=== PATIENT | female | born 1950 | race Caucasian/White ===

== ENCOUNTER 2017-09-21 07:57 | Inpatient (IN) ==
[~2017-09-21 07:57] MED LIST: LIDOCAINE 1% (10mg/ml) 2mL INJ PF SDV ID ONE
[2017-09-21] MEDS ORDERED: TRANEXAMIC ACID 1,000 MG in NS 100 ML IV ONE (08:06)
[2017-09-21] MEDS ORDERED: LIDOCAINE 1% (10mg/ml) 2mL INJ PF SDV ID ONE (08:06)
[2017-09-21] MEDS ORDERED: DEXAMETHASONE 4 MG/ML INJECTION IVP ONE (08:06)
[2017-09-21] MEDS ORDERED: ACETAMINOPHEN 500 MG TABLET PO ONE (08:06)
[2017-09-21] MEDS ORDERED: ONDANSETRON 4 MG/2 ML INJECTION IVP ONE (08:06)
[2017-09-21] MEDS ORDERED: METOCLOPRAMIDE 10mg/2ml INJECTION IVP ONE (08:06)
[2017-09-21] MEDS ORDERED: MELOXICAM 15 MG TABLET PO ONE (08:06)
[2017-09-21] MEDS ORDERED: EPINEPHrine PF 0.25 MG, BUPIVACAINE 0.25% PF 30 ML, KETOROLAC INJ 60 MG in NS 30 ML OPSITE ONE (08:06)
[2017-09-21] MEDS ORDERED: SALINE FLUSH 10ml SYRINGE IV PRN (08:06)
[2017-09-21] MEDS ORDERED: FAMOTIDINE PB 20 MG/50 ML BAG IV ONE (08:06)
[2017-09-21 08:17] VITALS: BMI 20.2
[2017-09-21] MEDS: LR 1,000 ML IV SCH ×2 (09:00→10:10)
[2017-09-21] MEDS ORDERED: PROPOFOL 500 MG/50 ML VIAL ONE (09:03)
[2017-09-21] MEDS ORDERED: MIDAZOLAM 2mg/2ml INJECTION ONE (09:04)
[2017-09-21] MEDS: NOZIN NASAL SWAB NAS SCH ×5 (09:05→21:34)
[2017-09-21] MEDS ORDERED: VANCOMYCIN 1,000 MG INJECTION ONE (09:35)
[2017-09-21] MEDS ORDERED: VANCOMYCIN 1,000 MG INJECTION IAR ONE (09:56)
[2017-09-21] MEDS ORDERED: CEFAZOLIN 1 G INJECTION IVP ONE (10:00)
[2017-09-21] MEDS ORDERED: GLYCOPYRROLATE 0.4 MG/2 ML INJECTION ONE (10:18)
--- NOTE | 2017-09-21 10:53 | Anesthesia Preoperative Report ---
Anesthesia Preoperative Record - Date and Time Date: 09/21/17 Preoperative Diagnosis: total knee arthroplasty M17.11 Proposed Procedure: right TKA, robotic NPO Since Date: 09/20/17 NPO Since Time: 23:00 Allergies/Adverse Reactions: Allergies Allergy/AdvReac Type Severity Reaction Status Date / Time Sulfa (Sulfonamide Allergy Severe Nausea Verified 09/21/17 08:29 Antibiotics) Penicillins Allergy Mild Rash Verified 09/21/17 08:29 - Vital Signs Vital Signs: Temperature 97.7 F 09/21/17 08:16 Pulse Rate 65 09/21/17 08:42 Respiratory Rate 14 09/21/17 08:16 Blood Pressure 155/71 H 09/21/17 09:25 Pulse Oximetry 97 09/21/17 08:16 Height and Weight: Height 5 ft 5 in Weight 55.1 kg Body Mass Index 20.2 - Medications Inpatient Medications: Current Medications Acetaminophen (Tylenol) 1,000 mg PO PREOP ONE Stop: 09/21/17 08:07 Last Admin: 09/21/17 09:06 Dose: 1,000 mg Cefazolin Sodium (Kefzol) 1 g IVP PREOP ONE Stop: 09/21/17 10:01 Last Admin: 09/21/17 09:50 Dose: 1 g Dexamethasone (Decadron) 10 mg IVP PREOP ONE Stop: 09/21/17 08:07 Last Admin: 09/21/17 09:12 Dose: 10 mg Lactated Ringer's (Lactated Ringers) 1,000 mls @ 50 mls/hr IV .Q20H JB Last Admin: 09/21/17 10:10 Dose: 50 mls/hr Famotidine/Sodium Chloride (Pepcid Premix) 20 mg in 50 mls @ 100 mls/hr IV PREOP ONE Stop: 09/21/17 08:35 Last Infusion: 09/21/17 09:30 Dose: Infused Epinephrine HCl 0.25 mg/Bupivacaine HCl 30 ml/Ketorolac Tromethamine 60 mg/ Sodium Chloride 62.25 mls @ 1 mls/hr OPSITE INTRAOP ONE PRN Reason: Protocol Stop: 09/23/17 22:20 Last Admin: 09/21/17 10:44 Dose: 1 mls/hr Tranexamic Acid 1,000 mg/ (Sodium Chloride) 110 mls @ 660 mls/hr IV INTRAOP ONE Stop: 09/21/17 08:15 Last Infusion: 09/21/17 10:22 Dose: Infused Tranexamic Acid 1,000 mg/ (Sodium Chloride) 110 mls @ 660 mls/hr IV INTRAOP ONE Stop: 09/21/17 08:15 Isopropyl Alcohol (Nozin Nasal Swab) 1 each PARRISH Q1M JB Stop: 09/21/17 08:09 Last Admin: 09/21/17 09:17 Dose: 1 each Lidocaine HCl (Xylocaine-Mpf 1% Vial) 1 mg ID O ONE Stop: 09/21/17 08:07 Last Admin: 09/21/17 09:00 Dose: 1 mg Meloxicam (Mobic) 15 mg PO PREOP ONE Stop: 09/21/17 08:07 Last Admin: 09/21/17 09:06 Dose: 15 mg Metoclopramide HCl (Reglan) 10 mg IVP PREOP ONE Stop: 09/21/17 08:07 Ondansetron HCl (Zofran) 4 mg IVP PREOP ONE Stop: 09/21/17 08:07 Last Admin: 09/21/17 09:09 Dose: 4 mg Sodium Chloride (Iv Flush) 10 - 80 ml IV PRN PRN PRN Reason: Flushing Vancomycin HCl (Vancocin) 1,000 mg IAR O ONE Stop: 09/21/17 09:57 Home Medications: Home Medications Medication Instructions Recorded Confirmed Type Levothyroxine Sodium 88 mcg PO DAILY #0 05/22/13 09/21/17 History Amlodipine Besylate [Norvasc] 2.5 mg PO DAILY #0 tab 08/09/16 09/21/17 History ergocalciferol (vitamin D2) 50,000 50,000 unit PO DAILY #2 cap 09/18/17 Rx unit capsule Citalopram Hydrobromide [Celexa] 1 tab PO DAILY 09/19/17 09/21/17 History Estradiol [Estrace] 2 mg PO DAILY 09/19/17 09/21/17 History Hydrocodone/APAP 5/325 [[place] 1 tab PO Q4H PRN 09/19/17 09/21/17 History 5/325] Ibuprofen 200 - 400 mg PO Q4-6HR PRN 09/21/17 09/21/17 History Is Patient on Beta Hua?: No - Medical History Respiratory: DENIES: Sleep Apnea Cardiovascular: Reports: Hypertension Gastrointestional: Reports: Other (constipation; IBS) Neuro/Musculoskeletal: Reports: HX.MS.OSAR, Depression Renal/Endocrine: Reports: Thyroid Disease (h/o goiter) - Surgical History HEENT Surgeries: Reports: Oral Surgery (wisdom teeth removal) GI Surgery/Treatments: Reports: Appendectomy, Cholecystectomy, Hernia Repair ( as a baby), Colonoscopy, Other (laparotomy; lysis of adhesions) Musculoskeletal Surgery/Tx: Reports: Other (hammer toe surgery bilat) Reproductive Surgery/Treatment: Reports: Hysterectomy, Oophorectomy (RSO), Tubal Ligation, Other (breast lump removed as a teenager) Anesthesia Reactions: None Hx Family Anesthesia Reaction: No History of Motion Sickness: No - Social History Smoking Status: Former smoker Hx Chewing Tobacco Use: No Second Hand Exposure: Yes Substance Use Type: does not use Alcohol Intake: current Alcohol Intake Frequency: a few times a month - Pertinent Findings Laboratory: CBC and BMP 09/21/17 08:27 BMP 09/21/17 08:27 Sodium 142 Potassium 3.8 Chloride 103 Carbon Dioxide 31 H BUN 21.0 H Creatinine 0.8 Glucose 91 Calcium 9.1 EKG: Sinus Rhythm - Physical Exam Respiratory Exam: Present: lungs clear, bilateral breath sounds equal Cardiovascular Exam: Present: regular rate and rhythm - Airway Assessment Mallampati Score: II TMD: 3 Fingerbreadths Neck Extension: good Overall Assessment: no airway concerns - ASA ASA Score: 2 - Plan Anesthesia: General TIVA, Neuroaxial Regional/Trunk Block: Spinal - Discussion Discussion: Discussed risks/options/alternatives of anesthesia and questions answered. Patient consents. Nursing pain assessment noted. Present for Discussion: family member (daughter) Attestation Statement: Prior to the delivery of any anesthetic medication, I examined the patient, developed the plan, obtained the patient's consent and discussed the risk and benefits of the procedure with the patient/guardian. - Additional Information Seen by Anesthesia: Yes
--- NOTE | 2017-09-21 11:29 | Operative Note ---
- Procedure Preoperative Diagnosis: Left knee primary degenerative joint disease Postoperative Diagnosis: Same as preoperative diagnosis. Surgeon: Mone Gill MD Heavy Equipment Sales Associate: Luis Quinones Complications: None. Anesthesia: Spinal. Estimated Blood Loss: See Anesthesia Record. Fluids: Please see Anesthesia Record. Description of Procedure: Mrs. Dudley and her left knee were identified and marked in the preoperative holding area. She was brought back to the operating suite. Spinal anesthetic was administered and she was placed supine on the operating table. The left lower extremity was prepped and draped in my normal sterile fashion. Timeout was performed. The [email or web address] robotic arm was used during the surgery. She had a fixed valgus deformity. No flexion contracture. A standard anterior midline incision followed by medial parapatellar arthrotomy was performed. Anterior fat pad and meniscus were removed. The patella was everted and a patella osteotomy was performed leaving 12 mm of bone. As expected she had complete loss of cartilage in the lateral compartment. Tibial and femoral arrays and checkpoints were placed both within the original incision. The bone was then registered with the [email or web address] robot. Osteophytes were removed and gaps were captured both 90 and 0 degrees with correction. Given that she was lax throughout I obtained 17 mm gaps throughout using the [email or web address] software. The [email or web address] robotic arm was then used to assist with the bone cuts. Posterior osteophytes and remaining meniscus were removed. Trial components were placed. We used a 4 femur and a 3 tibia with a 9 mm spacer and a 29 patella. She was tight in flexion so I released the PCL which balanced out nicely. I then decided cut for the PS femur. We then trialed with 11 spacer. She tracked well and was well balanced throughout range of motion. The leg was exsanguinated and the tourniquet inflated to 250 mmHg. The tibia was stamped. The bone was prepared for cementing and components were cemented into place and allowed to cure in extension. The tourniquet was let down and hemostasis obtained with electrocautery. The knee was ranged one more time to ensure good stability, balance and patellar tracking. 1 g of vancomycin powder was then placed into the knee joint. The capsulotomy was then closed with #1 Vicryl. I then left my assistant inventory manager to close the subcutaneous tissue with 2-0 Vicryl. Running 4-0 Monocryl will be used in the subcuticular layer. Dermabond will be used on the skin followed by sterile dressing. After drapes are removed patient will be taken to recovery room under the care of anesthesia.
--- NOTE | 2017-09-21 12:25 | XRay Report ---
Indication: postoperative image PROCEDURE: XR knee RT 2V: Encounter: Initial Comparison: July 25, 2017 Findings: Postoperative changes of right total knee replacement are seen. There is expected postoperative subcutaneous gas. No evidence of hardware failure or acute fracture. No retained radiopaque surgical instruments or sponges. Overlying material causing artifact. Impression: New right total knee prosthesis without evidence of immediate complication. .
[2017-09-21] MEDS ORDERED: DiphenhydrAMINE 25 MG CAPSULE PO PRN (12:29)
[2017-09-21] MEDS ORDERED: DiphenhydrAMINE 50 MG/ML INJECTION IVP PRN (12:29)
[2017-09-21] MEDS ORDERED: NOZIN NASAL SWAB NAS ONE (12:29)
[2017-09-21] MEDS ORDERED: LORazepam 1 MG TABLET PO PRN ×2 (12:29→14:01)
[2017-09-21] MEDS ORDERED: ONDANSETRON 4 MG/2 ML INJECTION IVP PRN (12:29)
[2017-09-21] MEDS: NS 1,000 ML IV SCH (12:54)
[2017-09-21] MEDS: ACETAMINOPHEN 325 MG TABLET PO SCH ×3 (13:15→21:35)
--- NOTE | 2017-09-21 13:37 | Anesthesia Postoperative Note ---
- Date and Time Date: 09/21/17 Time: 12:00 - Status Patient Participated in Evaluation: Patient Participated in Person Vital Signs: Temperature 98.5 F 09/21/17 12:36 Pulse Rate 54 L 09/21/17 13:06 Respiratory Rate 20 09/21/17 13:06 Blood Pressure 175/74 H 09/21/17 13:06 Pulse Oximetry 100 09/21/17 13:06 Respiratory Function: Airway Patent Cardiovascular Function: Regular Pulse EKG: Sinus Rhythm Mental Status: Alert and Oriented Pain Intensity: 0 Hydration: IV Infusing Complications During Recover: None Apparent - Follow-Up Instructions Instructions: Per Surgeon
--- NOTE | 2017-09-21 13:37 | Anesthesia Procedure Note ---
Peripheral Nerve Blockade - Procedure Physician: Carlitos Gill MD Date: 09/21/17 Surgical Procedure: Right Total Knee Replacement Discussion: Discussed risks/options/alternatives of anesthesia and questions answered. Patient consents. Nursing pain assessment noted. Block Start: 11:56 Block Stop: 11:58 Blocked Employed: Adductor Canal Indication: Post-Operative Pain Approach: Right Side Confirmed Position: Supine Patient: Consent, Risks/Benefits Discussed, Informed, Post Block Act. Discussed IV Sedation: No Sedation: Awake Initial Vital Signs: Temperature 97.7 F 09/21/17 08:16 Temperature Source Oral 09/21/17 08:16 Pulse Rate 62 09/21/17 08:16 Respiratory Rate 14 09/21/17 08:16 Blood Pressure 172/74 H 09/21/17 08:16 Blood Pressure Mean 106 09/21/17 08:16 Blood Pressure Position Sitting 09/21/17 08:16 Pulse Oximetry 97 09/21/17 08:16 Oxygen Delivery Method 09/21/17 08:16 Post Vital Signs: Temperature 98.5 F 09/21/17 12:36 Pulse Rate 54 L 09/21/17 13:06 Respiratory Rate 20 09/21/17 13:06 Blood Pressure 175/74 H 09/21/17 13:06 Pulse Oximetry 100 09/21/17 13:06 Initial Pain Pain Score: 0 Post Block Pain Score: 0 Prep: Chlorhexadine/ETOH Ultrasound Used?: Yes - Nerve Simulator Paresthesia/Pain: None - Injectate Ropivacaine (%): 0.5 Ropivacaine (mL): 20 Was Epi 1:200,000 Used?: No Injection: Injection made incrementally with constant monitoring and aspiration every ml
[2017-09-21] MEDS ORDERED: LORazepam 1 MG TABLET PO ONE (14:02)
[2017-09-21] MEDS: IBUPROFEN 200 MG TABLET PO SCH ×2 (15:04→21:36)
[2017-09-21] MEDS: Oxycodone *IR* 5 MG TABLET PO PRN ×2 (17:05→22:11)
[2017-09-21] MEDS: CEFAZOLIN 1 G in NS 50 ML IV SCH (18:14)
[2017-09-21] MEDS ORDERED: SENNOSIDES 8.6 MG TABLET PO SCH (21:00)
[2017-09-21] MEDS: ASPIRIN *EC* 81 MG TABLET PO SCH (21:36)
[2017-09-21] MEDS: DOCUSATE SODIUM 100 MG CAPSULE PO SCH (21:36)
[2017-09-21] MEDS: CITALOPRAM 10 MG TABLET PO SCH (22:11)
[2017-09-22] MEDS: CEFAZOLIN 1 G in NS 50 ML IV SCH (02:38)
[2017-09-22] MEDS: Oxycodone *IR* 5 MG TABLET PO PRN ×2 (02:41→10:41)
[2017-09-22] MEDS: NS 1,000 ML IV SCH ×3 (02:57→17:32)
[2017-09-22] MEDS: IBUPROFEN 200 MG TABLET PO SCH ×3 (04:04→17:32)
[2017-09-22] MEDS ORDERED: LEVOTHYROXINE 88 MCG TABLET PO SCH (06:30)
[2017-09-22] MEDS: NOZIN NASAL SWAB NAS SCH ×2 (06:34→13:37)
--- NOTE | 2017-09-22 08:44 | Orthopedic Progress Note ---
Date: Date: 09/22/17 Time: 838 Subjective/Severity of Illness: Marquita is sitting up in the chair this morning dressed and putting on her makeup. States She did well overnight, and pain has been well controlled with Tylenol and Roxicodone. Has been up ambulating. Denies any chest pain, shortness of breathe, nausea. Orthopedic Exam Vital signs: Temperature 98.8 F 09/22/17 04:06 Pulse Rate 55 L 09/22/17 07:29 Respiratory Rate 16 09/22/17 07:29 Blood Pressure 149/67 H 09/22/17 07:29 Pulse Oximetry 100 09/22/17 07:29 - Constitutional General Appearance: Present: alert, orientated x3, no acute distress, well nourished - Respiratory Exam Present: non-labored - Cardiovascular Exam Present: pedal pulses intact - Extremities Exam Present: pulses intact. Absent: calf tenderness - Integumentary Exam Comments: Mepilex dressing c/d/i. Normal post-operative swelling noted. Full ROM of Right ankle. - Neurological Exam Present: intact to light touch, no deficits - Labs Result Diagrams: 09/22/17 04:01 09/22/17 04:01 Abnormal lab results 09/21/17 09/22/17 09/22/17 Range/Units 08:27 04:01 04:01 Hgb 11.3 L (12-16) GM/DL Hct 34.5 L (36-46) % Carbon Dioxide 31 H (22-30) MEQ/L BUN 21.0 H (7-17) MG/DL Glucose 139 H (65-110) MG/DL H & H 09/22/17 Range/Units 04:01 Hgb 11.3 L (12-16) GM/DL Hct 34.5 L (36-46) % Orthopedic Assessment and Plan (1) Primary osteoarthritis of right knee Status: Acute Assessment and Plan: Current anti-coagulation protocol with ASA 81mg BID and SCDs for VTE prophylaxis. PT/OT services to improve independent function. Discharge Planning per Case Management. - Anticoagulation Therapy Anticoagulation: ASA 81 mg PO BID x6 weeks Hospital Course Summary Disclaimer: The visit summary below is not to be considered part of the above Progress Note.
[2017-09-22] MEDS ORDERED: AMLODIPINE 2.5 MG TABLET PO SCH (09:00)
[2017-09-22] MEDS ORDERED: POLYETHYL GLYCOL 3350 17gm PACKET PO SCH (09:00)
[2017-09-22] MEDS: ACETAMINOPHEN 325 MG TABLET PO SCH ×2 (09:13→13:37)
[2017-09-22] MEDS: CITALOPRAM 10 MG TABLET PO SCH (09:14)
[2017-09-22] MEDS: ASPIRIN *EC* 81 MG TABLET PO SCH (09:14)
[2017-09-22] MEDS: DOCUSATE SODIUM 100 MG CAPSULE PO SCH (09:15)
[2017-09-22] MEDS ORDERED: SENNOSIDES 8.6 MG TABLET PO PRN (11:38)
--- NOTE | 2017-09-22 11:45 | Discharge Summary ---
Orthopedic Discharge Info Date of admission: 09/21/17 07:57 Anticipated date of discharge: 09/22/17 Primary care physician: Vinicio Holden MD Attending Physician: Carlitos Gill MD Consults: 09/21/17 08:06 Consult to Anesthesiology [CONS] Routine Reason For Exam: Preoperative Assessment 09/21/17 12:29 Case Management Consult [CONS] Routine Reason For Exam: Discharge Planning DME-Walker [CONS] Routine Height: 5 ft 5 in Weight: 55.1 kg Total Joint Outpatient Therapy [CONS] Routine Comment: Remove dressing in 2 weeks - Discharge Diagnosis (1) Primary osteoarthritis of right knee Status: Acute - Laboratory Result Diagrams: 09/22/17 04:01 09/22/17 04:01 Laboratory: Abnormal lab results 09/22/17 09/22/17 Range/Units 04:01 04:01 Hgb 11.3 L (12-16) GM/DL Hct 34.5 L (36-46) % Glucose 139 H (65-110) MG/DL H & H 09/22/17 Range/Units 04:01 Hgb 11.3 L (12-16) GM/DL Hct 34.5 L (36-46) % Orthopedic Discharge HPI - HPI Comments This patient was admitted for elective surgical tx of end stage degenerative joint disease that failed to respond to conservative treatment. Further details of this is found in the admission H&P. Orthopedic Hospital Course Hospital course: 09/22/17 11:43 After appropriate preoperative clearance and signing of operative consent, the patient was given IV antibiotics, according to orthopedic protocol. The patient was taken to the operating room and underwent elective right total knee joint arthroplasty. Following surgery, antibiotics were discontinued less than 24 hours according to joint protocol. Appropriate anticoagulants with ASA 81mg BID x6 weeks were initiated and SCDs added for DVT prevention. The dressing was clean, dry, and intact. Pain control was obtained via multimodal approach. Bowel motivation addressed with scheduled and PRN medications. Early mobilization was initiated through PT services. Discharge arrangements made by a collaborative effort between the patient and Case Management. Follow-up is scheduled in 2-3 weeks. Discharge instructions given by orthopedic providers and nursing staff at discharge. Discharged stable and in good condition. 09/22/17 11:44 Care extended to > 2 midnight stays?: No Discharge Plan - Med Rec/Dispo Referrals/Follow Up: Carlitos Gill MD [Physician] - 10/16/17 11:30 am Additional Instructions: [facility] ON 09/25/2017 AT 1:00PM FOR PHYSICAL THERAPY MARIANNA. PHONE [phone] Prescriptions: New Aspirin *EC* [Ecotrin] 81 mg PO BID tab Milk of Magnesia [Mom] 30 ml PO DAILY udc Oxycodone *IR* [Roxicodone *Ir*] 5 - 15 mg PO Q3H PRN #60 tab PRN Reason: Breakthrough Pain PEG 3350 17gm PACKET [Miralax] 17 gm PO DAILY packet Acetaminophen [Tylenol] 650 mg PO QID tab Docusate Sodium [Colace] 100 mg PO BID cap Continue Levothyroxine Sodium 88 mcg PO DAILY #0 Amlodipine Besylate [Norvasc] 2.5 mg PO DAILY #0 tab Estradiol [Estrace] 2 mg PO DAILY Citalopram Hydrobromide [Celexa] 1 tab PO DAILY Ibuprofen 200 - 400 mg PO Q4-6HR PRN PRN Reason: Pain ergocalciferol (vitamin D2) 50,000 unit capsule 50,000 unit PO DAILY #2 cap No Action Hydrocodone/APAP 5/325 [[place] 5/325] 1 tab PO Q4H PRN PRN Reason: Pain - Disposition 01 Discharged Home, Self-Care - Dismissal Complete Discharge Instructions are:: Complete
[2017-09-22 13:42] VITALS: TEMP 97.7
[2017-09-22 15:42] VITALS: BP 149/66; PULSE 49; RESP 14; O2SAT 100
[2017-09-23] MEDS ORDERED: BISACODYL 10 MG SUPPOSITORY RECTALLY SCH (20:00)
== END 2017-09-22 16:22 | disposition home or self-care (01) | DRG 470 ==
LOC: NMC.PERIOP 07:57 → SRG 12:24
PROVIDERS: ADMIT Orthopaedic Surgery; ATTEND Orthopaedic Surgery